=== PATIENT | male | born 1965 | race Hispanic/Latino ===

== ENCOUNTER 2022-01-11 17:16 | Inpatient (IN) | payer SELFPAY ==
[2022-01-11] MEDS ORDERED: ASPIRIN 81 MG CHEWABLE TABLET ONE (17:38)
[2022-01-11 17:55] LABS: Absolute Lymphocytes (CBC) 1.5 K/uL (0.7-4.9); Hematocrit 43.6 % (39.6-49.0); Lymphocytes % 24.1 % (15.3-44.8); MPV 8.7 fL (7.6-11.3); RBC Red Blood Cell Count 4.91 M/uL (4.33-5.43)
[2022-01-11 18:03] LABS: Potassium 3.8 mmol/L (3.5-5.1); Troponin High Sensitivity 5.5 pg/mL (<58.9)
[2022-01-11 18:05] LABS: Protime INR 1.06
[2022-01-11] MEDS ORDERED: MORPHINE 4 MG/ML SYR ONE (18:29)
[2022-01-11] MEDS ORDERED: ONDANSETRON 4 MG/2 ML VIAL ONE (18:29)
[2022-01-11 18:58] LABS: SARS-COV-2 RT PCR NEGATIVE (NEGATIVE)
--- NOTE | 2022-01-11 19:03 | EDPHYS ---
Physician Documentation [facility] Name: Robert Campbell Age: 56 yrs Sex: Male : 1965 Arrival Date: 01/11/2022 Time: 17:19 Bed 13 Private MD: ED Physician Chucho Marcano HPI: 01/11 17:49 This 56 yrs old Male presents to ER via Wheelchair with complaints of Chest kb Pain. 17:49 The patient or guardian reports chest pain that is located primarily in the substernal kb area, anterior chest wall, left. Onset: at 14:30, awoke from sleep. The pain radiates to the left arm. Associated signs and symptoms: Pertinent positives: shortness of breath. The chest pain is described as a heaviness, a pressure. Duration: The patient or guardian reports a single episode. Modifying factors: The symptoms are alleviated by nothing. the symptoms are aggravated by nothing. Severity of pain: At its worst the pain was moderate in the emergency department the pain is unchanged. The patient has experienced a previous episode. The patient has not recently seen a physician. Pt reports chest pain that woke him up at 1430. Reports pain radiates into left arm and left face. c/o shortness of breath. . Historical: - Allergies: 17:22 No Known Allergies; iw - Home Meds: 17:22 None [Active]; iw - PMHx: 17:22 Myocardial infarction; iw - PSHx: 17:22 Appendectomy; iw - Social history:: Smoking status: Patient denies any tobacco usage or history of. ROS: 17:42 Constitutional: Negative for fever, chills, and weight loss. kb 17:42 Cardiovascular: Positive for chest pain. 17:42 Respiratory: Positive for shortness of breath. 17:42 All other systems are negative. Exam: 17:41 Constitutional: This is a well developed, well nourished patient who is awake, alert, kb and in no acute distress. Head/Face: Normocephalic, atraumatic. ENT: Moist Mucous membranes Cardiovascular: Regular rate and rhythm with a normal S1 and S2. No gallops, murmurs, or rubs. No pulse deficits. Abdomen/GI: Soft, non-tender. No distention Skin: Warm, dry with normal turgor. Normal color. MS/ Extremity: Pulses equal, no cyanosis. Neurovascular intact. Full, normal range of motion. Neuro: Awake and alert, GCS 15, oriented to person, place, time, and situation. Moves all extremities. Normal gait. Psych: Awake, alert, with orientation to person, place and time. Behavior, mood, and affect are within normal limits. 17:41 ECG was reviewed by the Attending Physician. 17:41 Respiratory: mild respiratory distress is noted, Respirations: labored breathing, that is mild, Breath sounds: are clear throughout. Vital Signs: 17:19 BP 129 / 97; Pulse 85; Resp 18; Temp 97.2; Pulse Ox 99% ; Weight 79.38 kg; Height 5 ft. iw 9 in. (175.26 cm); Pain 10/10; 18:15 BP 113 / 83; Pulse 80; Resp 17; Pulse Ox 100% on R/A; vg1 19:26 BP 126 / 80; Pulse 71; Resp 16; Pulse Ox 97% on R/A; Pain 0/10; gera 21:28 BP 121 / 90; Pulse 69; Resp 18; Pulse Ox 99% on R/A; Pain 0/10; gera 22:32 BP 116 / 54; Pulse 75; Resp 16; Pulse Ox 100% on R/A; Pain 0/10; gera 17:19 Body Mass Index 25.84 (79.38 kg, 175.26 cm) iw MDM: 17:35 Patient medically screened. kb 17:41 Data reviewed: vital signs, nurses notes. Data interpreted: Pulse oximetry: on room air kb is 99 %. Interpretation: normal. 17:51 The patient was given aspirin in the Emergency Department. kb 18:54 Counseling: I had a detailed discussion with the patient and/or guardian regarding: the kb historical points, exam findings, and any diagnostic results supporting the discharge/admit diagnosis, lab results, radiology results, the need for further work-up and treatment in the hospital. Physician consultation: Yuan MACIEL was contacted at 18:55, regarding admission, to the telemetry unit. patient's condition, in the emergency department to see patient at 18:55. 01/11 17:24 Order name: Basic Metabolic Panel; Complete Time: 18:25 iw 01/11 17:24 Order name: CBC with Diff; Complete Time: 18:02 iw 01/11 17:24 Order name: Troponin HS; Complete Time: 18:25 iw 01/11 17:24 Order name: NT PRO-BNP; Complete Time: 18:25 iw 01/11 17:24 Order name: PT-INR; Complete Time: 18:25 iw 01/11 17:24 Order name: XRAY Chest (1 view) iw 01/11 18:06 Order name: COVID-19/FLU A+B (Document "Date of Onset" if Symptomatic); Complete Time: kj1 19:01/11 18:39 Order name: COVID-19 SARS RT PCR (Document "Date of Onset" if Symptomatic) kb 01/11 17:24 Order name: EKG; Complete Time: 17:25 iw 01/11 17:24 Order name: Cardiac monitoring; Complete Time: 17:34 01/11 17:24 Order name: EKG - Nurse/Tech; Complete Time: 17:34 01/11 17:24 Order name: IV Saline Lock; Complete Time: 17:34 01/11 17:24 Order name: Labs collected and sent; Complete Time: 17:34 01/11 17:24 Order name: O2 Per Protocol; Complete Time: 17:34 01/11 17:24 Order name: O2 Sat Monitoring; Complete Time: 17:34 01/11 17:33 Order name: Cardiac monitoring; Complete Time: 17:33 1 01/11 17:33 Order name: EKG - Nurse/Tech; Complete Time: 17:33 1 01/11 17:33 Order name: IV Saline Lock; Complete Time: 17:33 1 01/11 17:33 Order name: Labs collected and sent; Complete Time: 17:33 1 01/11 17:33 Order name: O2 Per Protocol; Complete Time: 17:33 vg1 01/11 17:33 Order name: O2 Sat Monitoring; Complete Time: 17:34 vg1 EC:41 Rate is 80 beats/min. Rhythm is regular. QRS [place] is Normal. NV interval is normal at kb 154 msec. QRS interval is normal at 86 msec. QT interval is normal at 378 msec. Administered Medications: 17:40 Drug: Aspirin Chewable Tablet 324 mg Route: PO; vg1 18:30 Drug: morphine 4 mg Route: IVP; Site: left forearm; garrett 18:31 Follow up: Response: No adverse reaction garrett 18:30 Drug: Zofran (Ondansetron) 4 mg Route: IVP; Site: left forearm; garrett 18:30 Follow up: Response: No adverse reaction garrett Disposition: 01/12 09:02 Co-signature as Attending Physician, Chucho Marcano MD. rn Disposition Summary: 01/11/22 19:02 Hospitalization Ordered Hospitalization Status: Observation kb Provider: Varun Montoya Location: Telemetry/MedSurg (observation) kb Condition: Stable kb Problem: new kb Symptoms: are unchanged kb Bed/Room Type: Standard kb Room Assignment: 208(01/11/22 21:17) cg Diagnosis - Chest pain, unspecified kb Forms: - Medication Reconciliation Form kb - SBAR form kb Signatures: Dispatcher [employer] EDMahnaz Aguiar, SACK LIFTER-C SACK LIFTER-Ckb Sara Roberts, RN ESTRADA iw Chucho Marcano MD MD rn Garcia, Cindy, RN RN cg Garcia, Victoria, RN RN vg1 Lamar Esparza RN RN ha Corrections: (The following items were deleted from the chart) 01/11 17:23 17:22 Allergies: Codeine; iw iw 19:09 17:34 BASIC METABOLIC PANEL+C.LAB.BRZ ordered. EDMS EDMS 19:09 17:34 CBC+H.LAB.BRZ ordered. EDMS EDMS 19:09 17:34 D-DIMER+COAG.LAB.BRZ ordered. EDMS EDMS 19:09 17:34 HEPATIC FUNCTION+C.LAB.BRZ ordered. EDMS EDMS 19:09 17:34 MAGNESIUM+C.LAB.BRZ ordered. EDMS EDMS 21:17 19:02 kb cg
--- NOTE | 2022-01-11 19:03 | ER ---
Nurse's Notes [facility] Name: Robert Campbell Age: 56 yrs Sex: Male : 1965 Arrival Date: 01/11/2022 Time: 17:19 Bed 13 Private MD: Diagnosis: Chest pain, unspecified Presentation: 01/11 17:19 Chief complaint: Patient states: mid sternal chest pain since 230 this afternoon, feels iw like sharp constant pain and made his left fingers tingle, broke out in hot sweat, previous IA in 2013, had to be defibrillated. Coronavirus screen: At this time, the client does not indicate any symptoms associated with coronavirus-19. Ebola Screen: Patient negative for fever greater than or equal to 101.5 degrees Fahrenheit, and additional compatible Ebola Virus Disease symptoms Patient denies exposure to infectious person. Patient denies travel to an Ebola-affected area in the 21 days before illness onset. No symptoms or risks identified at this time. Initial Sepsis Screen: Does the patient meet any 2 criteria? No. Patient's initial sepsis screen is negative. Does the patient have a suspected source of infection? No. Patient's initial sepsis screen is negative. Risk Assessment: Do you want to hurt yourself or someone else? Patient reports no desire to harm self or others. Onset of symptoms was January 11, 2022. 17:19 Method Of Arrival: Wheelchair iw 17:19 Acuity: BUBBA 2 iw Historical: - Allergies: 17:22 No Known Allergies; iw - Home Meds: 17:22 None [Active]; iw - PMHx: 17:22 Myocardial infarction; iw - PSHx: 17:22 Appendectomy; iw - Social history:: Smoking status: Patient denies any tobacco usage or history of. Screenin:15 Abuse screen: Denies threats or abuse. Nutritional screening: No deficits noted. vg1 Tuberculosis screening: No symptoms or risk factors identified. Fall Risk No fall in past 12 months (0 pts). No secondary diagnosis (0 pts). IV access (20 points). Ambulatory Aid- None/Bed Rest/Nurse Assist (0 pts). Gait- Normal/Bed Rest/Wheelchair (0 pts) Mental Status- Oriented to own ability (0 pts). Total Rothman Fall Scale indicates No Risk (0-24 pts). Assessment: 17:30 General: Appears in no apparent distress. uncomfortable, Behavior is cooperative. Pain: vg1 Complains of pain in anterior aspect of left upper chest Pain radiates to left arm Pain currently is 10 out of 10 on a pain scale. Pain began today at 1430 Also complains of shortness of breath. Neuro: Level of Consciousness is awake, alert, obeys commands, Oriented to person, place, time, situation. Cardiovascular: Patient's skin is warm and dry. Respiratory: Airway is patent Respiratory effort is even, unlabored. GI: Patient currently denies nausea, vomiting. : No signs and/or symptoms were reported regarding the genitourinary system. EENT: No signs and/or symptoms were reported regarding the EENT system. Derm: Skin is intact, is healthy with good turgor. Musculoskeletal: Circulation, motion, and sensation intact. 19:25 Reassessment: No changes from previously documented assessment. The pt is resting gera comfortably with his and grandchild, at bedside. 21:28 Reassessment: No changes from previously documented assessment. The pt has a room gera assignment. Registration will be called, as well as, report. 21:37 Reassessment: I attempted to call [phone] to give report, but they said that the nurse gera would have to call me back. 22:07 Reassessment: Report called to 2nd floor. gera Vital Signs: 17:19 BP 129 / 97; Pulse 85; Resp 18; Temp 97.2; Pulse Ox 99% ; Weight 79.38 kg; Height 5 ft. iw 9 in. (175.26 cm); Pain 10/10; 18:15 BP 113 / 83; Pulse 80; Resp 17; Pulse Ox 100% on R/A; vg1 19:26 BP 126 / 80; Pulse 71; Resp 16; Pulse Ox 97% on R/A; Pain 0/10; gera 21:28 BP 121 / 90; Pulse 69; Resp 18; Pulse Ox 99% on R/A; Pain 0/10; gera 22:32 BP 116 / 54; Pulse 75; Resp 16; Pulse Ox 100% on R/A; Pain 0/10; gera 17:19 Body Mass Index 25.84 (79.38 kg, 175.26 cm) iw ED Course: 17:19 Patient arrived in ED. iw 17:22 Triage completed. iw 17:23 Arm band placed on. iw 17:25 No provider procedures requiring assistance completed. Inserted saline lock: 20 gauge vg1 in left forearm, using aseptic technique. ,using aseptic technique. completed by track repair supervisor. Patient maintains SpO2 saturation greater than 95% on room air. 17:32 Deb Coulter, RN is Primary Nurse. vg1 17:34 Mahnaz Benitez FNP-C [facility]. kb 17:35 Chucho Marcano MD is Attending Physician. kb 18:15 Patient has correct armband on for positive identification. Placed in gown. Bed in low vg1 position. Call light in reach. Side rails up X 1. Adult w/ patient. color television console monitor on. Pulse ox on. NIBP on. 18:59 XRAY Chest (1 view) In Process Unspecified. EDMS 19:02 Varun Montoya MD is Hospitalizing Provider. kb 19:21 Report given to Valery DORADO. vg1 22:33 Patient admitted, IV remains in place. gera Administered Medications: 17:40 Drug: Aspirin Chewable Tablet 324 mg Route: PO; vg1 18:30 Drug: morphine 4 mg Route: IVP; Site: left forearm; garrett 18:31 Follow up: Response: No adverse reaction garrett 18:30 Drug: Zofran (Ondansetron) 4 mg Route: IVP; Site: left forearm; garrett 18:30 Follow up: Response: No adverse reaction garrett Outcome: 19:02 Decision to Hospitalize by Provider. kb 21:29 Condition: stable gera 22:33 Admitted to via wheelchair. gera 22:33 Patient left the ED. gera Signatures: Dispatcher [employer] EDMN Mahnaz Benitez FNP-C [employer]TOGENET[employer] TECHNOLOGIST-Sara Mcarthur RN RN iw Deb Coulter, RN RN vg1 Valery Parks RN RN bo Au-Stager, Heather RN ESTRADA garrett Corrections: (The following items were deleted from the chart) 17:23 17:22 Allergies: Codeine; [facility]
--- NOTE | 2022-01-11 19:16 | P.HP ---
Certification for Inpatient Patient admitted to: Observation With expected LOS: <2 Midnights Patient will require the following post-hospital care: None Practitioner: I am a practitioner with admitting privileges, knowledge of patient current condition, hospital course, and medical plan of care. Services: Services provided to patient in accordance with Admission requirements found in Title 42 Section 412.3 of the Code of Federal Regulations Patient History Date of Service: 01/11/22 Reason for admission: Chest pain History of Present Illness: 56-year-old male with history of cardiac arrest presents emergency department for chest pain. Patient reports that he was awoken from his sleep by sudden pressure-like chest pain radiating to his left jaw and left arm along with diaphoresis. This was associated with shortness of breath. His initial troponin was negative EKG was unremarkable chest x-ray negative for acute findings. Patient reports that in 2013 he had episode of cardiac arrest requiring defibrillation was told he had a weak heart. Has never had heart catheterization. Will admit for ACS rule out. - Past Medical/Surgical History -: Cardiac arrest -: Appendectomy Psychosocial/ Personal History: Lives at home with family - Family History Father -: Heart disease, Hypertension, Diabetes - Social History Smoking Status: Never smoker Alcohol use: No CD- Drugs: No Place of Residence: Home Review of Systems 10-point ROS is otherwise unremarkable Respiratory: Shortness of Breath Cardiovascular: Chest Pain, Other (Diaphoresis) Physical Examination - Physical Exam General: Alert, In no apparent distress HEENT: Atraumatic, PERRLA, Mucous membr. moist/pink, EOMI, Sclerae nonicteric Neck: Supple, 2+ carotid pulse no bruit, No LAD, Without JVD or thyroid abnormality Respiratory: Clear to auscultation bilaterally, Normal air movement Cardiovascular: Regular rate/rhythm, Normal S1 S2 Gastrointestinal: Normal bowel sounds, No tenderness Musculoskeletal: No tenderness Integumentary: No rashes Neurological: Normal gait, Normal speech, Normal strength at 5/5 x4 extr, Normal tone, Normal affect Lymphatics: No axilla or inguinal lymphadenopathy - Studies Laboratory Data (last 24 hrs) 01/11/22 17:38: PT 11.7, INR 1.06 01/11/22 17:38: WBC 6.1, Hgb 15.0, Hct 43.6, Plt Count 293 01/11/22 17:38: Sodium 138, Potassium 3.8, BUN 11, Creatinine 0.97, Glucose 120 H 01/11/22 17:33: WBC Cancelled, Hgb Cancelled, Hct Cancelled, Plt Count Cancelled 01/11/22 17:33: Sodium Cancelled, Potassium Cancelled, BUN Cancelled, Creatinine Cancelled, Glucose Cancelled, Magnesium Cancelled, Total Bilirubin Cancelled, AST Cancelled, ALT Cancelled, Alkaline Phosphatase Cancelled Assessment and Plan - Plan Assessment: Chest pain rule out ACS Plan: Chest pain rule out ACS: Monitor on telemetry, trend troponin, aspirin, statin, beta-kandy, as needed morphine. cardiology consulted. DVT PPX: Lovenox Code status:Full code Discharge Plan: Home Plan to discharge in: 24 Hours - Advance Directives Does patient have a Living Will: No Does patient have a Durable POA for Healthcare: No - Code Status/Comfort Care Code Status Assessed: Yes (Full) Critical Care: No Time Spent Managing Pts Care (In Minutes): 55
[2022-01-11 22:52] VITALS: BMI 29.7
[2022-01-11] MEDS ORDERED: MORPHINE 2 MG/ML SYR IV PRN (22:59)
[2022-01-11] MEDS ORDERED: ONDANSETRON 4 MG/2 ML VIAL IV PRN (22:59)
[2022-01-11] MEDS: ATORVASTATIN 40 MG TAB PO SCH (23:54)
[2022-01-12 00:24] LABS: Urine Appearance Clear (Clear); Urine Bilirubin Negative (Negative); Urine Blood Negative (Negative); Urine Color Yellow (Yellow); Urine Glucose Negative (Negative); Urine Protein Negative (Negative); Urine Specific Gravity 1.025 (1.005-1.030)
[2022-01-12 00:35] LABS: Urine Microscopic Reflex NO UMIC
[2022-01-12 06:11] LABS: Absolute Lymphocytes (CBC) 2.2 K/uL (0.7-4.9); Hematocrit 41.4 % (39.6-49.0); Lymphocytes % 39.9 % (15.3-44.8); MPV 8.4 fL (7.6-11.3); RBC Red Blood Cell Count 4.67 M/uL (4.33-5.43)
[2022-01-12 06:13] LABS: ALT/SGPT 30 U/L (12-78); AST/SGOT 19 U/L (15-37); Albumin 3.5 g/dL (3.4-5.0); Alkaline Phosphatase 67 U/L (45-117); BUN Blood Urea Nitrogen 11 mg/dL (7-18); Bicarbonate 26 mmol/L (21-32); Bilirubin Total 0.6 mg/dL (0.2-1.0); Glucose Level 109 mg/dL (74-106); HDL Cholesterol 36 mg/dL (40-60); LDL Cholesterol, Calculated 131 (<130); Potassium 3.7 mmol/L (3.5-5.1); Protein, Total 6.4 g/dL (6.4-8.2); Sodium Level 138 mmol/L (136-145)
[2022-01-12] MEDS: METOPROLOL TAR 25 MG TAB PO SCH ×2 (06:48→17:33)
[2022-01-12] MEDS ORDERED: INFLUENZA VACCINE (for 6+ mo) 0.5 ML DOSE IMVAC ONE (08:00)
[2022-01-12] MEDS: ENOXAPARIN 40 MG/0.4 ML SQ SCH (08:38)
[2022-01-12] MEDS: ASPIRIN EC 81 MG TAB PO SCH (08:38)
--- NOTE | 2022-01-12 08:55 | RAD REPORT ---
EXAM DESCRIPTION: RAD - Chest Single View - 01/11/2022 6:57 pm CLINICAL HISTORY: CHEST PAIN COMPARISON: None available TECHNIQUE: AP portable chest image was obtained 01/11/2022 6:57 pm . FINDINGS: Lungs are clear. Heart and vasculature are normal. No measurable pleural effusion and no p neumothorax. No acute bony abnormality seen. No acute aortic findings suspected. Final reporting was delayed due to technical issues with the PACs IT systems. IMPRESSION: No acute cardiopulmonary process.
[2022-01-12] MEDS ORDERED: POTASSIUM CL SA 10 MEQ TAB PO ONE (09:00)
--- NOTE | 2022-01-12 09:52 | P.PN ---
Subjective Date of Service: 01/12/22 Chief Complaint: Chest pain Subjective: Improving (Patient is doing better admitted with sudden onset of chest pain he has a history of coronary artery disease) Review of Systems 10-point ROS is otherwise unremarkable Physical Examination - Vital Signs Temperature: 97.9 F Blood Pressure: 123/78 Pulse: 57 Respirations: 18 Pulse Ox (%): 98 - Physical Exam General: Alert, In no apparent distress, Oriented x3 HEENT: PERRLA Respiratory: Clear to auscultation bilaterally Cardiovascular: No edema, Normal pulses - Studies Laboratory Data (last 24 hrs) 01/11/22 17:38: PT 11.7, INR 1.06 01/11/22 17:38: WBC 6.1, Hgb 15.0, Hct 43.6, Plt Count 293 01/11/22 17:38: Sodium 138, Potassium 3.8, BUN 11, Creatinine 0.97, Glucose 120 H 01/11/22 17:33: WBC Cancelled, Hgb Cancelled, Hct Cancelled, Plt Count Cancelled 01/11/22 17:33: Sodium Cancelled, Potassium Cancelled, BUN Cancelled, Creatinine Cancelled, Glucose Cancelled, Magnesium Cancelled, Total Bilirubin Cancelled, AST Cancelled, ALT Cancelled, Alkaline Phosphatase Cancelled Assessment And Plan - Current Problems (Diagnosis) (1) Unstable angina Current Visit: Yes Status: Acute - Plan Patient is 56 years of age with a history of coronary artery disease admitted with unstable angina labs chemistries all unremarkable troponins negative EKG according to ER was normal doing much better cardiac evaluation possible discharge chest x-ray is clear
[2022-01-12] MEDS ORDERED: MORPHINE 4 MG/ML SYR IV PRN (15:00)
--- NOTE | 2022-01-12 15:50 | CON ---
Date of Consultation: 01/12/2022 Reason For Consultation: Chest pain. History Of Present Illness: This is a 56-year-old male, history of cardiac arrest in 2014. He was i n [place]. He was told that he had a heart attack, but no coronary angiogram was done. He required 3 shocks to get back to life and then after that, he was discharged and never had heart catheterizatio n as per his report. At this time, he comes in with a chest pain that woke him up from sleep, that w ent to his left arm and left jaw and to the back, lasted for about 2 hours and since then pain subsid ed and he feels well today. He does not have any other medical history. Past Medical History: Cardiac arrest as above. Medications: Refer to medical reconciliation sheet for detailed list. Allergies: NO KNOWN DRUG ALLERGIES. Past Surgical History: Appendectomy. Family History: No premature coronary artery disease or cancer. Social History: Does not smoke or drink. Does not use any drugs. Review of Systems: All systems reviewed were negative except for what mentioned in the HPI. Physical Examination: Vital Signs: Reviewed. Head and Neck: Pupils are equal, reactive to light. Intact eye movements. No JVD. No cervical lym phadenopathy. Neck is supple. Thyroid is not enlarged. Lungs: Clear to auscultation bilaterally. No rhonchi, rales, or crackles. No accessory muscle use. Heart: Regular rate and rhythm. No extra sounds. Abdomen: Soft, nontender. Bowel sounds positive. No organomegaly. No masses or hernia. No rigidi ty or rebound. Extremities: No edema, clubbing, or cyanosis. Intact pulses. Skin: No rash noted. Neurologic: Alert, awake, oriented x3. No acute focal deficits appreciated. Investigations: Labs were reviewed. All troponins are negative and chest x-ray was negative. Assessment And Recommendations: 1.Chest pain. The patient has a history of cardiac arrest in 2014 and was told it was a heart attac k; however, never had coronary angiogram. Definitely put him at a very high risk category for unstab le angina and acute coronary syndrome. At this point, I recommend this patient to stay over the week end under observation and plan for coronary angiogram on Friday morning. 2.Dyslipidemia. Recommend to continue statin. I will follow the patient with you and plan for aleyda nary angiogram on Friday. /ASIF Voice ID: [id number] Report ID: [id number]
[2022-01-12] MEDS: ATORVASTATIN 40 MG TAB PO SCH (20:20)
[2022-01-13] MEDS: METOPROLOL TAR 25 MG TAB PO SCH ×2 (06:00→17:13)
[2022-01-13 06:10] LABS: Absolute Lymphocytes (CBC) 1.9 K/uL (0.7-4.9); Hematocrit 40.6 % (39.6-49.0); Lymphocytes % 37.6 % (15.3-44.8); MPV 8.4 fL (7.6-11.3)
[2022-01-13 06:24] LABS: ALT/SGPT 27 U/L (12-78); AST/SGOT 8 U/L (15-37); Albumin 3.3 g/dL (3.4-5.0); Alkaline Phosphatase 67 U/L (45-117); BUN Blood Urea Nitrogen 12 mg/dL (7-18); Bicarbonate 26 mmol/L (21-32); Bilirubin Total 0.7 mg/dL (0.2-1.0); Glucose Level 112 mg/dL (74-106); Potassium 3.9 mmol/L (3.5-5.1); Protein, Total 6.2 g/dL (6.4-8.2); Sodium Level 139 mmol/L (136-145)
[2022-01-13] MEDS: ENOXAPARIN 40 MG/0.4 ML SQ SCH (08:22)
[2022-01-13] MEDS: ASPIRIN EC 81 MG TAB PO SCH (08:22)
[2022-01-13] MEDS ORDERED: POTASSIUM CL SA 10 MEQ TAB PO ONE (09:00)
--- NOTE | 2022-01-13 12:17 | P.PN ---
Subjective Date of Service: 01/13/22 Chief Complaint: Chest pain Subjective: Improving (Patient is doing better denies any chest pain) Review of Systems 10-point ROS is otherwise unremarkable Physical Examination - Vital Signs Temperature: 97.5 F Blood Pressure: 101/65 Pulse: 59 Respirations: 15 Pulse Ox (%): 97 - Physical Exam General: Alert, Oriented x3 Respiratory: Clear to auscultation bilaterally Cardiovascular: No edema, Normal pulses Gastrointestinal: Normal bowel sounds, Soft and benign Assessment And Plan - Current Problems (Diagnosis) (1) Unstable angina Current Visit: Yes Status: Acute - Plan Patient's chest pain has resolved he is doing much better scheduled for a cardiac cath tomorrow reduce dose of Lopressor to 12.5 mg p.o. twice daily troponins are negative
--- NOTE | 2022-01-13 18:36 | PN ---
Date of Progress Note: 01/13/2022 Subjective: Seen by bedside. No further chest pain episodes. Review of Systems: No chest pain, shortness of breath, or cough. No nausea, vomiting, diarrhea. No abdominal pain. No history of urinary urgency. No skin rash. All other systems reviewed and they were negative except for what mentioned in HPI. Physical Examination: Vital Signs: Reviewed. Head and Neck: Pupils are equal, reactive to light. Intact eye movements. No JVD. No cervical lym phadenopathy. Neck is supple. Thyroid is not enlarged. Lungs: Clear to auscultation bilaterally. No rhonchi, rales, or crackles. No accessory muscle use. Heart: Regular rate and rhythm. No extra sounds. Abdomen: Soft, nontender. Bowel sounds positive. No organomegaly. No masses or hernia. No rigidi ty or rebound. Extremities: No edema, clubbing, or cyanosis. Intact pulses. Skin: No rash noted. Neurologic: Alert, awake, oriented x3. No acute focal deficits appreciated. Lymph Nodes: No cervical or axillary lymphadenopathy Investigations: Labs were reviewed. Assessment And Recommendations: Unstable angina with a known history of cardiac arrest due to heart attack as per his report. Keep him n.p.o. past midnight, plan for coronary angiogram tomorrow dede jain and continue aspirin. At the present time, the patient is chest pain free and he has been since [facility]. /ASIF Voice ID: [id number] Report ID: [id number]
[2022-01-13] MEDS: ATORVASTATIN 40 MG TAB PO SCH (20:00)
[2022-01-14] MEDS: METOPROLOL TAR 25 MG TAB PO SCH ×2 (05:12→18:33)
[2022-01-14 06:19] LABS: BUN Blood Urea Nitrogen 14 mg/dL (7-18); Bicarbonate 26 mmol/L (21-32); Glucose Level 110 mg/dL (74-106); Sodium Level 138 mmol/L (136-145)
[2022-01-14] MEDS: ASPIRIN EC 81 MG TAB PO SCH (06:35)
[2022-01-14] MEDS: ENOXAPARIN 40 MG/0.4 ML SQ SCH (09:00)
--- NOTE | 2022-01-14 09:28 | P.PN ---
Subjective Date of Service: 01/14/22 Subjective: No new changes, No C/O voiced, Improving Patient is scheduled for cardiac catheterization Review of Systems 10-point ROS is otherwise unremarkable Physical Examination - Vital Signs Temperature: 97.1 F Blood Pressure: 115/73 Pulse: 58 Respirations: 14 Pulse Ox (%): 98 - Physical Exam General: Alert, In no apparent distress HEENT: Atraumatic, PERRLA, EOMI Neck: Supple, JVD not distended Respiratory: Clear to auscultation bilaterally, Normal air movement Cardiovascular: Regular rate/rhythm, Normal S1 S2 Gastrointestinal: Normal bowel sounds, No tenderness Musculoskeletal: No tenderness Integumentary: No rashes Neurological: Normal speech, Normal tone, Normal affect Lymphatics: No axilla or inguinal lymphadenopathy - Studies Medications List Reviewed: Yes Assessment & Plan - Problems (Diagnosis) (1) Unstable angina Current Visit: Yes Status: Acute (2) History of cardiac arrest Current Visit: Yes Status: Acute - Plan -High-sensitivity troponin -Cardiology consultation appreciated -Cardiac catheterization today -Lipid profile -Powder Core Tester regarding modifying risk for cardiac disease Discharge Plan: Home Plan to discharge in: Greater than 2 days - Advance Directives Does patient have a Living Will: No Does patient have a Durable POA for Healthcare: No
[2022-01-14] MEDS ORDERED: LIDOCAINE 1% 20 ML MDV ONE (10:52)
[2022-01-14] MEDS ORDERED: HEPA 1000U/500MLS 2,000 UNIT/1,000 ML BAG IV ONE (10:52)
--- NOTE | 2022-01-14 11:19 | EKG ---
Test Date: 2022-01-11 Test Time: 17:27:34 Casing Machine Operator: CHRISTOPHER MEASUREMENT RESULTS: Intervals: Rate: 80 [place]: 154 QRSD: 86 QT: 378 QTc: 435 [place]: P: 45 [place]: 154 QRS: 37 T: 28 INTERPRETIVE STATEMENTS: Normal sinus rhythm Normal ECG No previous ECG available for comparison Electronically Signed On 01-14-22 11:13:22 CDT by Jake Silverman
[2022-01-14] MEDS ORDERED: NA CHLORIDE 0.9% 500 ML ONE (12:32)
[2022-01-14] MEDS ORDERED: FENTANYL CITR 100 MCG/2 ML ONE (13:32)
[2022-01-14] MEDS ORDERED: ATROPINE SULF 1 MG/10 ML SYR IV ONE (13:32)
[2022-01-14] MEDS ORDERED: MIDAZOLAM HCL 2 MG/2 ML INJ ONE (13:32)
[2022-01-14] MEDS ORDERED: HEPARIN 5000 UNIT/ML 1 ML VIAL ONE (13:32)
[2022-01-14] MEDS ORDERED: VERAPAMIL HCL 10 MG/4 ML VIAL IV ONE (13:32)
[2022-01-14] MEDS ORDERED: HEPARIN 10,000 UNIT/10 ML VIAL IV ONE (13:33)
[2022-01-14 16:10] VITALS: O2SAT 99
[2022-01-14 16:15] VITALS: BP 126/84
[2022-01-14 17:08] VITALS: TEMP 97.7
--- NOTE | 2022-01-15 01:02 | OP ---
Date of Procedure: 01/14/2022 Surgeon: XAVIER BACK Procedures Performed: 1.Selective coronary angiogram. 2.Left heart catheterization. 3.Left ventriculogram. Indication: Unstable angina with history of cardiac arrest and questionable history of DC in the pas t. Access: Right radial artery 6-Bolivian, closed with TR band. Sedation: None. Complications: None. Bleeding: Less than 10 mL. Description Of Procedure: After risks, benefits, and alternatives were explained, the patient agreed to procedure and signed a formal consent. The patient was brought into the cardiac catheterization laboratory, prepped and draped in usual sterile fashion. Then, I accessed the right radial artery us ing pediatric micropuncture kit and placed a 6-Bolivian slender sheath and then I took a 5-Bolivian Sherrill 4.0 catheter into the aortic root, engaged left main and right coronary artery, took standard views and then exchanged for angled pigtail across the aortic valve and measured LVEDP. LV gram was done a nd then pullback did not record any gradient. Then, I removed the catheter and sheath was removed, a nd I placed TR band with good hemostasis. Findings: 1.Left main: Large and normal. 2.LAD: Large vessel with mid 30% stenosis, otherwise no disease. Diagonal branches all patent with no significant disease. 3.Left circumflex: Large vessel with OM1 branch being large with proximal 40% stenosis. 4.RCA: Large dominant and normal. 5.Normal LVEDP of 5 mmHg. 6.Normal ejection fraction of 65% and normal wall motion. Conclusion: 1.Mild nonobstructive coronary artery disease. 2.Normal LVEDP. 3.Normal ejection fraction with no wall motion. Plan: Risk factor modification and medical management. High-dose statin and aspirin. The patient c an be released home from current cardiac standpoint today and follow up with me in the office in 4 we eks. SR/MODL Voice ID: [id number] Report ID: [id number]
== END 2022-01-14 18:50 | disposition home or self-care (01) | DRG 287 ==
LOC: ER 17:16 → ERHOLD 19:08 → 2ND 21:29 → OBSVTOIN 01-12 15:01
PROVIDERS: ADMIT Internal Medicine Sleep Medicine; ATTEND Hospitalist
PROC: 4A023N7 Measurement of Cardiac Sampling and Pressure, Left Heart, Percutaneous Approach (ICD-10-PCS; principal; 2022-01-14)
PROC: B2111ZZ Fluoroscopy of Multiple Coronary Arteries using Low Osmolar Contrast (ICD-10-PCS; 2022-01-14)
PROC: B2151ZZ Fluoroscopy of Left Heart using Low Osmolar Contrast (ICD-10-PCS; 2022-01-14)
DX: I25.110 Atherosclerotic heart disease of native coronary artery with unstable angina pectoris (principal); E78.5 Hyperlipidemia, unspecified; I25.2 Old myocardial infarction; Z90.49 Acquired absence of other specified parts of digestive tract; Z79.899 Other long term (current) drug therapy; Z79.82 Long term (current) use of aspirin; Z20.822 Contact with and (suspected) exposure to COVID-19
CPT/HCPCS: 0240U; 36415; 71045; 80048; 80053; 80061; 81003; 83880; 84484; 85025; 85610; 93005; 93458; 96374; 96375; 99285; C1893; G0378; J1644; J1650; J2250; J2405; J3010; J7040